=== PATIENT | male | born 1990 | race Caucasian/White ===

== ENCOUNTER → 2017-11-22 | Outpatient (REF) ==
[2017-11-22 15:13] LABS: APPEARANCE, BODY FLUID CLOUDY (CLEAR); BF DIFF IF INDICATED? YES (NO); BF MONONUCLEAR CELL % 82.7 % (0-0); BF POLYMORPHONUCLEAR CELL % 17.3 % (0-0); RBC BODY FLUID 116 10^3/uL (<2); SOURCE, BODY FLUID OTHER; SYNOVIAL FLUID COLOR RED (YELLOW); WBC BODY FLUID 364 /uL (0-10)
== END ==
LOC: M LAB REF 14:49
DX: M70.10 Bursitis, unspecified hand (principal)

== ENCOUNTER 2018-04-04 19:38 | Emergency (ER) | payer OTHER ==
[2018-04-04] MEDS: LIDOCAINE 2% W/EPIN INJ 20ML **PRES FREE INJ (21:00)
[2018-04-04] MEDS: ceFAZolin 1GM INJ (J0690 PER 500MG) IM (21:09)
[2018-04-04] MEDS: NORCO, ANEXSIA 5/325MG TABLET (HYDROcodone/ACETAMINOPHEN) PO (21:09)
[2018-04-04] MEDS: NORCO 5/325MG TABLET (BULK FOR ED) PO (22:25)
== END 2018-04-04 22:27 | disposition home or self-care (01) ==
LOC: M ED 19:38
DX: S81.032A Puncture wound without foreign body, left knee, initial encounter (principal); S81.012A Laceration without foreign body, left knee, initial encounter; W18.49XA Other slipping, tripping and stumbling without falling, initial encounter; W26.0XXA Contact with knife, initial encounter; Y92.098 Other place in other non-institutional residence as the place of occurrence of the external cause; Z79.899 Other long term (current) drug therapy
CPT/HCPCS: J0690